=== PATIENT | male | born 1980 | race American Indian/Alaskan Native ===

== ENCOUNTER 2022-01-04 18:39 | Emergency (ER) | payer OTHER | END 2022-01-04 19:51 | disposition home or self-care (01) | LOC: DL.ED 18:39 | DX: M79.605 Pain in left leg (principal); I10 Essential (primary) hypertension; K21.9 Gastro-esophageal reflux disease without esophagitis; Z88.5 Allergy status to narcotic agent; Z79.899 Other long term (current) drug therapy | CPT/HCPCS: 73590-LT; 99283 ==